=== PATIENT | male | born 1950 | race Caucasian/White ===

== ENCOUNTER 2017-10-31 15:52 | Observation (INO) | payer BC, OTHER ==
--- NOTE | 2017-10-31 16:05 | PDOC ---
History of Present Illness - General Stated Complaint: FEVER Time Seen by Provider: 10/31/17 16:05 - History of Present Illness Initial Comments: 10/31/17 16:11 Mr. Hogue is a 67 yo male w/ pmh of HTN, HLD, and cardiac arrhythmia (s/p pacemaker) who presents for evaluation of 3 day history of nausea with intermittent facial pain. Patient reports he has had a fever at home which he has controlled w/ OTC tylenol. The patient denies chest pain, shortness of breath, headache and dizziness. Denies chills, nausea, diarrhea and constipation. Denies dysuria, frequency, urgency and hematuria. Allergies: Penicillins Past History - Past Medical History Allergies/Adverse Reactions: Allergies Allergy/AdvReac Type Severity Reaction Status Date / Time Penicillins Allergy Verified 10/31/17 16:07 Home Medications: Ambulatory Orders Allopurinol [Zyloprim -] 0 mg PO DAILY 10/31/17 Amlodipine Besylate 5 mg PO DAILY 10/31/17 Aspirin 81 mg PO DAILY 10/31/17 Hydralazine HCl 50 mg PO DAILY 10/31/17 Metoprolol Succinate 25 mg PO DAILY 10/31/17 Simvastatin 0 mg PO DAILY 10/31/17 Thyroid,Pork [[place] Thyroid] 0 mg PO DAILY 10/31/17 Cardiac Disorders: Yes (heart arrythmia) COPD: No HTN: Yes - Suicide/Smoking/Psychosocial Hx Smoking History: Never smoked Have you smoked in the past 12 months: No Hx Alcohol Use: No Drug/Substance Use Hx: No Review of Systems - Review of Systems Comments:: 10/31/17 16:44 GENERAL/CONSTITUTIONAL: +Fever as described. No chills. No weakness. HEAD, EYES, EARS, NOSE AND THROAT: +Intermittent facial pain over the past 3 days. No change in vision. No ear pain or discharge. No sore throat. CARDIOVASCULAR: No chest pain or shortness of breath RESPIRATORY: No cough, wheezing, or hemoptysis. GASTROINTESTINAL: +Nausea without vomiting, diarrhea or constipation. GENITOURINARY: No dysuria, frequency, or change in urination. MUSCULOSKELETAL: No joint or muscle swelling or pain. No neck or back pain. SKIN: No rash NEUROLOGIC: No headache, vertigo, loss of consciousness, or change in strength/ sensation. ENDOCRINE: No increased thirst. No abnormal weight change HEMATOLOGIC/LYMPHATIC: No anemia, easy bleeding, or history of blood clots. ALLERGIC/IMMUNOLOGIC: No hives or skin allergy. *Physical Exam - Physical Exam Comments: 10/31/17 16:45 GENERAL: Awake, alert, and fully oriented, in no acute distress HEAD: No signs of trauma, normocephalic, atraumatic EYES: PERRLA, EOMI, sclera anicteric, conjunctiva clear ENT: Auricles normal inspection, hearing grossly normal, nares patent, oropharynx clear without exudates. Moist mucosa NECK: Normal ROM, supple, no lymphadenopathy, JVD, or masses LUNGS: No distress, speaks full sentences, clear to auscultation bilaterally HEART: Regular rate and rhythm, normal S1 and S2, no murmurs, rubs or gallops, peripheral pulses normal and equal bilaterally. ABDOMEN: Soft, nontender, normoactive bowel sounds. No guarding, no rebound. No masses EXTREMITIES: Normal inspection, Normal range of motion, no edema. No clubbing or cyanosis. NEUROLOGICAL: Cranial nerves II through XII grossly intact. Normal speech, normal gait, no focal sensorimotor deficits SKIN: Warm, Dry, normal turgor, no rashes or lesions noted. ED Treatment Course - LABORATORY CBC & Chemistry Diagram: 10/31/17 16:15 10/31/17 16:15 Medical Decision Making - Medical Decision Making 10/31/17 21:03 Mr. Hogue is a 67 yo male w/ pmh as described who presents for evaluation of fever and facial pain / headache as described. Sepsis workup started. CXR negative. Blood cultures pending. Patient unable to provide urine sample at this time. Head CT ordered for evaluation of headache negative. Troponin elevated as below on 2 draws. EKG significant for atrial sensed ventricular paced rhythm w/ prolonged AV conduction w/ pvc's. Unable to explain fever or troponin at this time. Risks and benefits of LP discussed with patient who ultimately decided to refuse LP. Will admit for further workup / trending of troponins. Paging inpatient team. Laboratory Results - last 24 hr 10/31/17 10/31/17 10/31/17 16:15 16:15 16:15 WBC 11.6 H RBC 5.09 Hgb 14.7 Hct 44.0 MCV 86.5 MCH 28.9 MCHC 33.4 RDW 13.4 Plt Count 253 MPV 7.8 Absolute Neuts (auto) 8.2 H Neutrophils % 71.0 Lymphocytes % 14.6 D Monocytes % 13.0 H Eosinophils % 0.4 D Basophils % 1.0 Nucleated RBC % 0 PT with INR 13.10 H INR 1.16 H PTT (Actin FS) 26.8 VBG pH 7.46 H POC VBG pCO2 34.6 L POC VBG pO2 45.3 Mixed VBG HCO3 24.2 Sodium Potassium Chloride Carbon Dioxide Anion Gap BUN Creatinine Creat Clearance w eGFR Random Glucose Lactic Acid Calcium Total Bilirubin AST ALT Alkaline Phosphatase Troponin I Total Protein Albumin 10/31/17 10/31/17 10/31/17 16:15 16:15 16:15 WBC RBC Hgb Hct MCV MCH MCHC RDW Plt Count MPV Absolute Neuts (auto) Neutrophils % Lymphocytes % Monocytes % Eosinophils % Basophils % Nucleated RBC % PT with INR INR PTT (Actin FS) VBG pH POC VBG pCO2 POC VBG pO2 Mixed VBG HCO3 Sodium 139 Potassium 4.3 Chloride 104 Carbon Dioxide 23 Anion Gap 12 BUN 25 H Creatinine 1.9 H Creat Clearance w eGFR 35.54 Random Glucose 117 H Lactic Acid 1.4 Calcium 9.2 Total Bilirubin 1.0 AST 19 ALT 23 Alkaline Phosphatase 57 Troponin I 0.16 H* Total Protein 7.9 Albumin 3.9 10/31/17 10/31/17 19:35 19:38 WBC RBC Hgb Hct MCV MCH MCHC RDW Plt Count MPV Absolute Neuts (auto) Neutrophils % Lymphocytes % Monocytes % Eosinophils % Basophils % Nucleated RBC % PT with INR INR PTT (Actin FS) VBG pH POC VBG pCO2 POC VBG pO2 Mixed VBG HCO3 Sodium Potassium Chloride Carbon Dioxide Anion Gap BUN Creatinine Creat Clearance w eGFR Random Glucose Lactic Acid 1.1 Calcium Total Bilirubin AST ALT Alkaline Phosphatase Troponin I 0.15 H* Total Protein Albumin *DC/Admit/Observation/Transfer Diagnosis at time of Disposition: Elevated troponin Fever Qualifiers: Fever type: unspecified Qualified Code(s): R50.9 - Fever, unspecified - Discharge Dispostion Decision to Admit order: Yes - Referrals Referrals: Analilia Clement MD [Primary Care Provider] - - Patient Instructions - Post Discharge Activity
[2017-10-31 16:09] VITALS: BMI 31.5
[2017-10-31] MEDS ORDERED: ACETAMINOPHEN 1000 MG/100 ML VIAL (NON FORMULARY) IVPB ONE (16:36)
[2017-10-31] MEDS ORDERED: SODIUM CHLORIDE 1,000 ML IV STA ×2 (16:37→21:03)
[2017-10-31 16:41] LABS: EOS % 0.4 % (0-4.5); HEMOGLOBIN 14.7 GM/dL (11.7-16.9); LYMPH % 14.6 % (8-40); MCH 28.9 pg (25.7-33.7); MCHC 33.4 g/dl (32.0-35.9); MEAN CELL VOLUME 86.5 fl (80-96); MEAN PLT VOLUME 7.8 fl (7.5-11.1); PLATELET COUNT 253 K/MM3 (134-434); RBC 5.09 M/mm3 (4.00-5.60); RDW 13.4 % (11.9-15.9); WHITE BLOOD COUNT 11.6 K/mm3 (4.0-10.0)
[2017-10-31] MEDS ORDERED: ACETAMINOPHEN INJECTION 100 ML IVPB ONE (16:43)
[2017-10-31 16:48] LABS: VENOUS PC02 34.6 mmHg (38-52); VENOUS PH 7.46 (7.32-7.42)
[2017-10-31 16:49] LABS: VENOUS PO2 45.3 mmHg (28-48)
[2017-10-31 17:08] LABS: ALBUMIN 3.9 g/dl (3.4-5.0); ANION GAP 12 MMOL/L (8-16); BLOOD UREA NITROGEN 25 mg/dL (7-18); CALCIUM 9.2 mg/dL (8.5-10.1); CHLORIDE 104 mmol/L (98-107); CO2 23 mmol/L (21-32); CREATININE 1.9 mg/dL (0.55-1.3); GLUCOSE,RANDOM 117 mg/dL (74-106); INR 1.16 (0.83-1.09); POTASSIUM 4.3 mmol/L (3.5-5.1); PROTHROMBIN TIME (PATIENT) 13.1 SEC (9.7-13.0); SGOT/AST 19 U/L (15-37); SGPT/ALT 23 U/L (13-61); SODIUM 139 mmol/L (136-145); TOT PROT 7.9 g/dl (6.4-8.2)
[2017-10-31 17:09] LABS: ALK PHOS 57 U/L (45-117)
[2017-10-31 17:10] LABS: ACTIVATED PTT 26.8 SECONDS (25.2-36.5)
[2017-10-31] MEDS ORDERED: METOCLOPRAMIDE HCL INJECTION 10 MG/2 ML VIAL IVPUSH ONE (17:11)
[2017-10-31] MEDS ORDERED: METOCLOPRAMIDE HCL INJECTION 10 MG/2 ML VIAL ONE (17:23)
[2017-10-31] MEDS ORDERED: ASPIRIN 81 MG CHEWABLE TABLETS PO ONE (17:32)
[2017-10-31] MEDS ORDERED: ASPIRIN 81 MG CHEWABLE TABLETS ONE (17:54)
--- NOTE | 2017-10-31 18:18 | PDOC ---
Attending Attestation - Resident Resident Name: Harvey Anderson - ED Attending Attestation I have performed the following: I have examined & evaluated the patient, The case was reviewed & discussed with the resident, I agree w/resident's findings & plan, Exceptions are as noted - HPI HPI: 10/31/17 18:12 67 year old male with a significant past medical history of HTN, HLD, Cardiac arrhythmia s/p PPM, who presents to the ED with MILLIGAN, nausea, and fever x 3 days. Pt states that his symptoms began with fever. Did not take temp at home but felt warm. Pt states that he subsequently developed a frontal headache. This has been waxing and waning in severity. Denies thunderclap. Denies worst headache of life. Denies neck stiffness. Pt also endorses nausea without vomiting. Denies diarrhea. He denies cough. Denies abdominal pain. Denies dysuria. Denies nasal congestion. He reports taking tylenol for fever while at home with slight relief. Denies chest pain, Sob. Denies contact with sick individuals, out of state travelling. Denies any other symptoms. Allergies: Penicillin. Social history: Former smoker. No alcohol. No illicit drugs. Surgical history: None PMD: Dr. Analilia Clement. " - Physicial Exam PE: 10/31/17 18:15 "GENERAL: Awake, alert, and fully oriented, in no acute distress. HEAD: No signs of trauma EYES: PERRLA, EOMI, sclera anicteric, conjunctiva clear ENT: Auricles normal inspection, hearing grossly normal, nares patent, oropharynx clear without exudates. Moist mucosa NECK: Nontender, no stepoffs, Normal ROM, supple, no lymphadenopathy, JVD, or masses LUNGS: Breath sounds equal, clear to auscultation bilaterally. No wheezes, and no crackles HEART: Regular rate and rhythm, normal S1 and S2, no murmurs, rubs or gallops ABDOMEN: Soft, nontender, normoactive bowel sounds. No guarding, no rebound. No masses EXTREMITIES: Normal range of motion, no edema. No clubbing or cyanosis. No cords, erythema, or tenderness NEUROLOGICAL: Cranial nerves II through XII intact. 5/5 strength and sensation in all extremities, Normal speech, normal gait, normal cerebellar function SKIN: Warm, Dry, normal turgor, no rashes or lesions noted." - Medical Decision Making 10/31/17 18:15 67 M with fever, headache, nausea. Vitals notable for temp 103. Pt with no focal signs of infection on exam. Pt with headache but no signs of meningitis. Full ROM of neck. Pt is awake and alert with normal mental status. Will consider meningitis w/u if no other source identified. - Labs, cultures - UA, CXR - Flu swab - IVF, tylenol, reglan 10/31/17 20:18 Labs notable for trop 0.16. Pt without chest pain/SOB. Suspect demand ischemia 2/2 infection. Also consider endocarditis. Echo ordered Pt with clear CXR, UA pending. I discussed with pt possibility of meningitis given his headache and fever. Risks and benefits of LP discussed. However, pt states his headache has resolved. Denies any symptoms at this time. I advised that LP should be done if we do not find any other source of his fever. However, pt refusing.
--- NOTE | 2017-10-31 22:30 | HP ---
CHIEF COMPLAINT: Generalized Malaise, Fever, Headache PCP: Dr. Joo Mari HISTORY OF PRESENT ILLNESS: This is a 67 y/o man with significant medical history of HTN, HLD, CAD s/p PPM ( Jooix). Who presents to the ED with fever, nausea, generalized malaise, decreased appetite. Patient reports having stress at home with his , and was not eating and drinking a lot. He reports having headaches which he attributes to his poor po intake. Patient denies fall or trauma. Patient denies blurred vision, dizziness, neck stiffness, photophobia, SOB, CP, AP, vomiting, diarrhea, constipation, dysuria. ER course was notable for: (1) WBC-11.6 (2) T Max- 103.0 (3) Troponin I- 0.16, 0.15 (4) BUN- 25 (5) Cr- 1.9 Recent Travel: None PAST MEDICAL HISTORY: See HPI PAST SURGICAL HISTORY: [facility] Social History: Smoking: Former Alcohol: Beer, Occasional Drugs: None Lives with spouse Family History: Brother: NC, age 59 Daughter: Non-Hodgkin's Lymphoma, age 17 Allergies Penicillins Allergy (Verified 10/31/17 16:07) HOME MEDICATIONS: Home Medications Medication Instructions Recorded Allopurinol [Zyloprim -] 0 mg PO DAILY 10/31/17 Amlodipine Besylate 5 mg PO DAILY 10/31/17 Aspirin 81 mg PO DAILY 10/31/17 Hydralazine HCl 50 mg PO DAILY 10/31/17 Metoprolol Succinate 25 mg PO DAILY 10/31/17 Simvastatin 0 mg PO DAILY 10/31/17 Thyroid,Pork [[place] Thyroid] 0 mg PO DAILY 10/31/17 REVIEW OF SYSTEMS CONSTITUTIONAL: generalized weakness, malaise, loss of appetite Absent: fever, chills, diaphoresis, weight change HEENT: Absent: rhinorrhea, nasal congestion, throat pain, throat swelling, difficulty swallowing, mouth swelling, ear pain, eye pain, visual changes CARDIOVASCULAR: Absent: chest pain, syncope, palpitations, irregular heart rate, lightheadedness , peripheral edema RESPIRATORY: Absent: cough, shortness of breath, dyspnea with exertion, orthopnea, wheezing, stridor, hemoptysis GASTROINTESTINAL: Absent: abdominal pain, abdominal distension, nausea, vomiting, diarrhea, constipation, melena, hematochezia GENITOURINARY: Absent: dysuria, frequency, urgency, hesitancy, hematuria, flank pain, genital pain MUSCULOSKELETAL: Absent: myalgia, arthralgia, joint swelling, back pain, neck pain SKIN: Absent: rash, itching, pallor HEMATOLOGIC/IMMUNOLOGIC: Absent: easy bleeding, easy bruising, lymphadenopathy, frequent infections ENDOCRINE: Absent: unexplained weight gain, unexplained weight loss, heat intolerance, cold intolerance NEUROLOGIC: Absent: headache, focal weakness or paresthesias, dizziness, unsteady gait, seizure, mental status changes, bladder or bowel incontinence PSYCHIATRIC: Absent: anxiety, depression, suicidal or homicidal ideation, hallucinations. PHYSICAL EXAMINATION Vital Signs - 24 hr 10/31/17 10/31/17 10/31/17 16:07 19:18 21:48 Temperature 103 F H 98.7 F 99.2 F Pulse Rate 91 H 72 Respiratory 20 18 Rate Blood Pressure 105/67 123/72 O2 Sat by Pulse 94 L Oximetry (%) GENERAL: Awake, alert, and fully oriented, in no acute distress. HEAD: Normal with no signs of trauma. EYES: Pupils equal, round and reactive to light, extraocular movements intact, sclera anicteric, conjunctiva clear. No lid lag. EARS, NOSE, THROAT: Ears normal, nares patent, oropharynx clear without exudates. Dry mucous membranes. NECK: Normal range of motion, supple without lymphadenopathy, JVD, or masses. LUNGS: Breath sounds equal, clear to auscultation bilaterally. No wheezes, and no crackles. No accessory muscle use. HEART: Regular rate and rhythm, normal S1 and S2 without murmur, rub or gallop. ABDOMEN: Soft, nontender, not distended, normoactive bowel sounds, no guarding, no rebound, no masses. No hepatomegaly or splenomegaly. MUSCULOSKELETAL: Normal range of motion at all joints. No bony deformities or tenderness. No CVA tenderness. UPPER EXTREMITIES: 2+ pulses, warm, well-perfused. No cyanosis. No clubbing. No peripheral edema. LOWER EXTREMITIES: 2+ pulses, warm, well-perfused. No calf tenderness. No peripheral edema. NEUROLOGICAL: Cranial nerves II-XII intact. Normal speech. Gait not observed. PSYCHIATRIC: Cooperative. Good eye contact. Appropriate mood and affect. SKIN: Warm, dry, normal turgor, no rashes or lesions noted, normal capillary refill. Laboratory Results - last 24 hr 10/31/17 10/31/17 10/31/17 16:15 16:15 16:15 WBC 11.6 H RBC 5.09 Hgb 14.7 Hct 44.0 MCV 86.5 MCH 28.9 MCHC 33.4 RDW 13.4 Plt Count 253 MPV 7.8 Absolute Neuts (auto) 8.2 H Neutrophils % 71.0 Lymphocytes % 14.6 D Monocytes % 13.0 H Eosinophils % 0.4 D Basophils % 1.0 Nucleated RBC % 0 PT with INR 13.10 H INR 1.16 H PTT (Actin FS) 26.8 VBG pH 7.46 H POC VBG pCO2 34.6 L POC VBG pO2 45.3 Mixed VBG HCO3 24.2 Sodium Potassium Chloride Carbon Dioxide Anion Gap BUN Creatinine Creat Clearance w eGFR Random Glucose Lactic Acid Calcium Total Bilirubin AST ALT Alkaline Phosphatase Troponin I Total Protein Albumin 10/31/17 10/31/17 10/31/17 16:15 16:15 16:15 WBC RBC Hgb Hct MCV MCH MCHC RDW Plt Count MPV Absolute Neuts (auto) Neutrophils % Lymphocytes % Monocytes % Eosinophils % Basophils % Nucleated RBC % PT with INR INR PTT (Actin FS) VBG pH POC VBG pCO2 POC VBG pO2 Mixed VBG HCO3 Sodium 139 Potassium 4.3 Chloride 104 Carbon Dioxide 23 Anion Gap 12 BUN 25 H Creatinine 1.9 H Creat Clearance w eGFR 35.54 Random Glucose 117 H Lactic Acid 1.4 Calcium 9.2 Total Bilirubin 1.0 AST 19 ALT 23 Alkaline Phosphatase 57 Troponin I 0.16 H* Total Protein 7.9 Albumin 3.9 10/31/17 10/31/17 19:35 19:38 WBC RBC Hgb Hct MCV MCH MCHC RDW Plt Count MPV Absolute Neuts (auto) Neutrophils % Lymphocytes % Monocytes % Eosinophils % Basophils % Nucleated RBC % PT with INR INR PTT (Actin FS) VBG pH POC VBG pCO2 POC VBG pO2 Mixed VBG HCO3 Sodium Potassium Chloride Carbon Dioxide Anion Gap BUN Creatinine Creat Clearance w eGFR Random Glucose Lactic Acid 1.1 Calcium Total Bilirubin AST ALT Alkaline Phosphatase Troponin I 0.15 H* Total Protein Albumin ASSESSMENT/PLAN: This is a 67 y/o man with a PMHx of HTN, HLD, CAD s/p PPM. Placed in Tele Observation for Elevated Troponin r/o ACS, Fever of Unknown Source for further evaluation of their emergent condition. Plan: FEN - NS@60ml/hr - Replete lytes prn - Low Na Diet DVT ppx - OOB - SCDs - Consider AC if LOS > 48 hrs Code Status: Full Code Dispo: Tele Observation Problem List - Problem (1) Fever Assessment/Plan: - unknown source - Blood Cultures-pending - Urinalysis and Urine Culture-pending - Rapid Influenza Swab- neg - Chest Xray image reviewed no obvious infiltrate or effusion noted, awaiting official read - Tylenol given in ED will continue - Will continue IVF - Appreciate ID consult - Repeat CBC, BMP in am Code(s): R50.9 - FEVER, UNSPECIFIED Qualifiers: Fever type: unspecified Qualified Code(s): R50.9 - Fever, unspecified (2) Headache Assessment/Plan: - Likely secondary to Dehydration vs Stress vs Meningitis - Head CT- neg ICH - Post Fluid Bolus, patient reports improvement - Tylenol prn - On exam- no nuchal rigidity, no photophobia, no head pain - Neuro checks - Monitor vitals Code(s): R51 - HEADACHE (3) Elevated troponin Assessment/Plan: - Likely secondary to demand ischemia - Serial Enzymes - Cardiac monitoring - Appreciate Cardiology consult - EKG -Atrial Paced with PVCs Code(s): R74.8 - ABNORMAL LEVELS OF OTHER SERUM ENZYMES (4) HTN (hypertension) Assessment/Plan: - stable - Continue home meds with parameters - Monitor renal function Code(s): I10 - ESSENTIAL (PRIMARY) HYPERTENSION (5) HLD (hyperlipidemia) Assessment/Plan: - stable - Continue Lipitor - Monitor LFTs Code(s): E78.5 - HYPERLIPIDEMIA, UNSPECIFIED (6) CAD (coronary artery disease) Assessment/Plan: - s/p PPM (Jooix, interrogated last week, per pt) - On exam- pt denies CP, palpitations or SOB at present - EKG reviewed - Continue home meds Code(s): I25.10 - ATHSCL HEART DISEASE OF [place] CORONARY ARTERY W/O ANG PCTRS (7) Pacemaker Assessment/Plan: - See Above Code(s): Z95.0 - PRESENCE OF CARDIAC PACEMAKER Visit type - Emergency Visit Emergency Visit: Yes ED Registration Date: 10/31/17 Care time: The patient presented to the Emergency Department on the above date and was hospitalized for further evaluation of their emergent condition. - New Patient This patient is new to me today: Yes Date on this admission: 10/31/17 - Critical Care Critical Care patient: No Hospitalist Screening - Colonoscopy Questionnaire Colonoscopy Questionnaire: Colonoscopy Questionnaire - Patient: 50 - 75 years old and never had a screening colonoscopy: No History of colon or rectal polyps, or CA: No History of IBD, Crohn's disease or UC: No History of abdominal radiation therapy as a child: No - Relative: 1 with colon or rectal CA, or polyps at age 60 or younger: No Colon or rectal CA diagnosed at age 45 or younger: No Multiple relatives with colon or rectal CA: No - Outcome: Screening Result: Negative Screen
[2017-11-01 01:43] LABS: URINE APPEARANCE CLEAR; URINE BILIRUBIN NEGATIVE (<2.0 mg/dL); URINE COLOR YELLOW; URINE GLUCOSE (UA) NEGATIVE (NEGATIVE); URINE KETONE TRACE (NEGATIVE); URINE LEUK ESTERASE TRACE (NEGATIVE); URINE NITRITE NEGATIVE (NEGATIVE); URINE PROTEIN NEGATIVE (NEGATIVE); URINE UROBILINOGEN NEGATIVE mg/dL (0.2-1.0)
[2017-11-01 01:48] LABS: EPI CELLS RARE /HPF (FEW); URINE HYALINE CAST 4 /lpf; URINE MUCUS RARE
[2017-11-01] MEDS: ACETAMINOPHEN 325 MG TABLET (FP) PO PRN ×2 (05:46→17:43)
[2017-11-01] MEDS ORDERED: THYROID 30 MG TABLET PO SCH (07:00)
[2017-11-01 07:41] LABS: BASO % 0.5 % (0-2.0); EOS % 0.8 % (0-4.5); HEMOGLOBIN 12.8 GM/dL (11.7-16.9); LYMPH % 25.1 % (8-40); MCH 29.1 pg (25.7-33.7); MCHC 33.7 g/dl (32.0-35.9); MEAN CELL VOLUME 86.2 fl (80-96); MONO % 15.1 % (3.8-10.2); NEUT % 58.5 % (42.8-82.8); PLATELET COUNT 208 K/MM3 (134-434); RBC 4.41 M/mm3 (4.00-5.60); RDW 13.4 % (11.9-15.9); WHITE BLOOD COUNT 10.1 K/mm3 (4.0-10.0)
[2017-11-01] MEDS: THYROID 30 MG TABLET PO SCH (08:16)
[2017-11-01 08:32] LABS: CHLORIDE 108 mmol/L (98-107); POTASSIUM 4.1 mmol/L (3.5-5.1); SODIUM 141 mmol/L (136-145)
[2017-11-01 08:38] LABS: ANION GAP 10 MMOL/L (8-16); BLOOD UREA NITROGEN 22 mg/dL (7-18); CALCIUM 8.1 mg/dL (8.5-10.1); CO2 23 mmol/L (21-32); CREATININE 1.6 mg/dL (0.55-1.3); GLUCOSE,RANDOM 86 mg/dL (74-106); MAGNESIUM 2.1 mg/dL (1.8-2.4); PHOSPHOROUS 3.3 mg/dL (2.5-4.9)
[2017-11-01] MEDS: ASPIRIN 81 MG CHEWABLE TABLETS PO SCH (09:08)
[2017-11-01] MEDS: HEPARIN NA (PORCINE) 5,000 UNITS/ML 1ML VIAL SQ SCH ×2 (09:08→21:22)
[2017-11-01] MEDS: hydrALAZINE HCL 50 MG TABLET (FP) PO SCH (09:08)
[2017-11-01] MEDS: amLODIPine BESYLATE 5 MG TABLET (FP) PO SCH (09:09)
[2017-11-01] MEDS: ALLOPURINOL 100 MG TABLET (FP) PO SCH (09:09)
[2017-11-01] MEDS: metoPROLOL SUCCINATE 25 MG TAB.SR.24H (FP) PO SCH (09:09)
--- NOTE | 2017-11-01 09:58 | CON.CARD ---
Consult Consult Specialty:: cardio - History of Present Illness Chief Complaint: nausea, fever History of Present Illness: 67 male who presented for 3 day history of nausea, malaise. Patient reported fever at home which he has controlled w/ OTC tylenol. fever 103 in ER. troponin 0.1--no change x 3. wbc mildly elevated, lactate normal. CARLOS noted on labs as well. PMH: HTN, HLD, pacemaker - Alcohol/Substance Use Hx Alcohol Use: No - Smoking History Smoking history: Never smoked Have you smoked in the past 12 months: No If you are a former smoker, when did you quit?: many years ago Home Medications - Allergies Allergies/Adverse Reactions: Allergies Allergy/AdvReac Type Severity Reaction Status Date / Time Penicillins Allergy Verified 10/31/17 16:07 - Home Medications Home Medications: Ambulatory Orders Allopurinol [Zyloprim -] 0 mg PO DAILY 10/31/17 Amlodipine Besylate 5 mg PO DAILY 10/31/17 Aspirin 81 mg PO DAILY 10/31/17 Hydralazine HCl 50 mg PO DAILY 10/31/17 Metoprolol Succinate 25 mg PO DAILY 10/31/17 Simvastatin 0 mg PO DAILY 10/31/17 Thyroid,Pork [[place] Thyroid] 0 mg PO DAILY 10/31/17 Vital Signs: Vital Signs Temperature 98.5 F 11/01/17 09:06 Pulse Rate 76 11/01/17 09:06 Respiratory Rate 18 11/01/17 09:06 Blood Pressure 120/60 11/01/17 09:06 O2 Sat by Pulse Oximetry (%) 96 11/01/17 05:48 - Other Data Labs, Other Data: CBC, BMP 11/01/17 05:30 11/01/17 05:30 INR, PTT INR 1.16 (0.83-1.09) H 10/31/17 16:15 Troponin, BNP 10/31/17 10/31/17 11/01/17 16:15 19:35 01:42 Troponin I 0.16 H* 0.15 H* 0.14 H* Troponin, BNP 10/31/17 10/31/17 11/01/17 16:15 19:35 01:42 Troponin I 0.16 H* 0.15 H* 0.14 H* Laboratory Tests 10/31/17 10/31/17 10/31/17 16:15 16:15 16:15 WBC Hgb Plt Count Sodium Potassium Carbon Dioxide BUN 25 H Creatinine Lactic Acid 1.4 AST 19 ALT 23 Troponin I 0.16 H* 10/31/17 11/01/17 11/01/17 19:35 01:42 05:30 WBC 10.1 H Hgb 12.8 Plt Count 208 Sodium Potassium Carbon Dioxide BUN Creatinine Lactic Acid AST ALT Troponin I 0.15 H* 0.14 H* 11/01/17 05:30 WBC Hgb Plt Count Sodium 141 Potassium 4.1 Carbon Dioxide 23 BUN 22 H Creatinine 1.6 H Lactic Acid AST ALT Troponin I Assessment/Plan ECG: NSR with APCs; v-paced CXR: clear lungs/pleura fever: -w/u per pmd -c/o MILLIGAN and CT evidence of sinusitis elevated troponin: -troponin in low (non-diagnostic) range, flat trend x 3--not c/w ACS. i.e. nonspecific finding in setting of non-cardiac sx's s/p PPM CARLOS: -creatinine 1.5 here 12/2016 -was 1.9 on admit, down to 1.6 today with fluids -likely related to vol depletion with poor po intake reported, with insensible losses from fever HTN: -bp controlled -same meds HPL: -cont home statin
--- NOTE | 2017-11-01 12:44 | PN ---
Progress Note (short form) - Note Progress Note: pt has PM. therefore, i was curious as to what deputy brand inspector monitors his PM and he stated he sees dr ricardo. consult placed to dr ricardo instead. thanks
--- NOTE | 2017-11-01 14:05 | CON.ID ---
Consult - History of Present Illness History of Present Illness: 67 y.o. male with PMH of CAD s/p PPM (placed last December and checked 4 days ago), HTN, HLD presents with c/o fever (103F at home), frontal headache during febrile episodes, nausea without vomiting/diarrhea, generalized weakness and loss of appetite for 4 days. Pt states he was feeling well prior to onset of symptoms. He denies neck stiffness, sensitivity to light or audio/visual disturbances. States he does not have a history of migraine/cluster headaches. Pt also denies shortness of breath/cough/chest pain/increased nasal discharge/ sore throat/ dysuria/ rash. Denies any pain or discomfort around PPM site. He has not been eating in the past 4 days (only jello) due to loss of appetite. Pt denies history of travel other than to [place] for a weekend 3 wks ago. He is and lives with his and 23 y.o. daughter, both who have been healthy. He denies multiple sexual partners or history of STDs, or illicit drug use/excessive alcohol intake. In the ER noted to have fever (103F), mild leukocytosis, with elevated BUN/Creatinine. Currently he is alert, without acute distress. Fever of 102F this a.m. but denies current headache or nausea. States he is feeling "a bit better". 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 Place of : [place] History of Recent Travel: Yes ([place] 3 w[place] ago) Home Medications - Allergies Allergies/Adverse Reactions: Allergies Allergy/AdvReac Type Severity Reaction Status Date / Time Penicillins Allergy Verified 11/01/17 14:10 - Home Medications Home Medications: Ambulatory Orders Allopurinol [Zyloprim -] 0 mg PO DAILY 10/31/17 Amlodipine Besylate 5 mg PO DAILY 10/31/17 Aspirin 81 mg PO DAILY 10/31/17 Hydralazine HCl 50 mg PO DAILY 10/31/17 Metoprolol Succinate 25 mg PO DAILY 10/31/17 Simvastatin 0 mg PO DAILY 10/31/17 Thyroid,Pork [[place] Thyroid] 0 mg PO DAILY 10/31/17 Review of Systems - Review of Systems Constitutional: reports: Chills, Fever. denies: No Symptoms, Diaphoresis, Lethargy, Loss of Appetite, Malaise, Night Sweats, Unintentional Wgt. Loss, Weakness, Other Eyes: reports: No Symptoms. denies: Blind Spots, Blurred Vision, Double Vision , Eye Pain, Floaters, Photophobia, Recent Change in Vision, Other HENT: reports: No Symptoms. denies: Difficult Swallowing, Ear Discharge, Ear Pain, Epistaxis, Gingival Bleeding, Hearing Loss, Mouth Swelling, Nasal Congestion, Ocular Prosthesis, Throat Pain, Toothache, Ringing in Ears, Other Neck: reports: No Symptoms. denies: Decreased ROM, Lumps, Pain on Movement, Stiffness, Swollen Glands, Tenderness, Other Cardiovascular: reports: No Symptoms. denies: Chest Pain, Edema, Palpitations, Shortness of Breath, Other Respiratory: reports: No Symptoms. denies: Cough, Exercise Intolerance, Hemoptysis, Orthopnea, PND, Snoring, SOB, SOB on Exertion, Wheezing, Other Gastrointestinal: reports: No Symptoms, Nausea. denies: Abdominal Pain, Bloating, Constipation, Diarrhea, Dysphagia, Indigestion, Melena, Rectal Bleeding, Vomiting, Vomiting Blood, Other Genitourinary: reports: No Symptoms. denies: Burning, Discharge, Dysuria, Flank Pain, Frequency, Hematuria, Incontinence, Lesions, Menses, Pain, Testicular Mass, Testicular Pain, Testicular Swelling, Urgency, Vaginal Bleeding , Other Breasts: reports: No Symptoms Reported Musculoskeletal: reports: No Symptoms. denies: Back Pain, Crepitus, Decreased ROM, Extremity Pain, Joint Pain, Joint Swelling, Muscle Pain, Muscle Cramps, Muscle Weakness, Other Integumentary: reports: No Symptoms. denies: Blister, Bruising, Change in Color , Eczema, Erythema, Incision, Lesions, Lump, Pallor, Pruritis, Rash, Wound, Other Neurological: reports: Headache. denies: No Symptoms, Change in LOC, Change in Speech, Confusion, Dizziness, Incoordination, Numbness, Parasthesia, Pre- Existing Deficit, Seizure, Syncope, Tremors, Unsteady Gait, Weakness, Other Endocrine: reports: No Symptoms. denies: Excessive Sweating, Flushing, Increased Hunger, Increased Thirst, Intolerance to Cold, Intolerance to Heat, Unexplained Weight Gain, Unexplained Weight Loss, Other Hematology/Lymphatic: reports: No Symptoms. denies: Easily Bruised, Excessive Bleeding, Swollen Glands, Other Psychiatric: reports: No Symptoms. denies: Altered Sleep Pattern, Anxiety, Depression, Hallucinations, Panic, Paranoia, Suicidal, Other Physical Exam Vital Signs: Vital Signs Temperature 98.5 F 11/01/17 09:06 Pulse Rate 76 11/01/17 09:06 Respiratory Rate 18 11/01/17 09:06 Blood Pressure 120/60 11/01/17 09:06 O2 Sat by Pulse Oximetry (%) 96 11/01/17 05:48 Constitutional: Yes: No Distress, Calm Eyes: Yes: Conjunctiva Clear HENT: Yes: Atraumatic, Normocephalic Neck: Yes: Supple, Trachea Midline Cardiovascular: Yes: Regular Rate and Rhythm Respiratory: Yes: CTA Bilaterally Gastrointestinal: Yes: Normal Bowel Sounds, Soft Renal/: Yes: WNL Musculoskeletal: Yes: WNL Extremities: Yes: WNL Edema: No Integumentary: Yes: WNL Wound/Incision: Yes: Clean/Dry (PPM site healed, no erythema/tenderness, no drainage, no tenderness at site) Neurological: Yes: Alert, Oriented Psychiatric: Yes: Alert, Oriented Labs: CBC, BMP 11/01/17 05:30 11/01/17 05:30 Laboratory Tests 10/31/17 10/31/17 10/31/17 16:15 16:15 16:15 WBC 11.6 H RBC 5.09 Hgb 14.7 Hct 44.0 MCV 86.5 MCH 28.9 MCHC 33.4 RDW 13.4 Plt Count 253 MPV 7.8 Absolute Neuts (auto) 8.2 H Neutrophils % 71.0 Lymphocytes % 14.6 D Monocytes % 13.0 H Eosinophils % 0.4 D Basophils % 1.0 Nucleated RBC % 0 PT with INR 13.10 H INR 1.16 H PTT (Actin FS) 26.8 VBG pH 7.46 H POC VBG pCO2 34.6 L POC VBG pO2 45.3 Mixed VBG HCO3 24.2 Sodium Potassium Chloride Carbon Dioxide Anion Gap BUN Creatinine Creat Clearance w eGFR Random Glucose Lactic Acid Calcium Phosphorus Magnesium Total Bilirubin AST ALT Alkaline Phosphatase Troponin I Total Protein Albumin Urine Color Urine Appearance Urine pH Ur Specific [place] Urine Protein Urine Glucose (UA) Urine Ketones Urine Blood Urine Nitrite Urine Bilirubin Urine Urobilinogen Ur Leukocyte Esterase Urine WBC (Auto) Urine RBC (Auto) Ur Epithelial Cells Hyaline Casts Urine Mucus 10/31/17 10/31/17 10/31/17 16:15 16:15 16:15 WBC RBC Hgb Hct MCV MCH MCHC RDW Plt Count MPV Absolute Neuts (auto) Neutrophils % Lymphocytes % Monocytes % Eosinophils % Basophils % Nucleated RBC % PT with INR INR PTT (Actin FS) VBG pH POC VBG pCO2 POC VBG pO2 Mixed VBG HCO3 Sodium 139 Potassium 4.3 Chloride 104 Carbon Dioxide 23 Anion Gap 12 BUN 25 H Creatinine 1.9 H Creat Clearance w eGFR 35.54 Random Glucose 117 H Lactic Acid 1.4 Calcium 9.2 Phosphorus Magnesium Total Bilirubin 1.0 AST 19 ALT 23 Alkaline Phosphatase 57 Troponin I 0.16 H* Total Protein 7.9 Albumin 3.9 Urine Color Urine Appearance Urine pH Ur Specific [place] Urine Protein Urine Glucose (UA) Urine Ketones Urine Blood Urine Nitrite Urine Bilirubin Urine Urobilinogen Ur Leukocyte Esterase Urine WBC (Auto) Urine RBC (Auto) Ur Epithelial Cells Hyaline Casts Urine Mucus 10/31/17 10/31/17 11/01/17 19:35 19:38 01:12 WBC RBC Hgb Hct MCV MCH MCHC RDW Plt Count MPV Absolute Neuts (auto) Neutrophils % Lymphocytes % Monocytes % Eosinophils % Basophils % Nucleated RBC % PT with INR INR PTT (Actin FS) VBG pH POC VBG pCO2 POC VBG pO2 Mixed VBG HCO3 Sodium Potassium Chloride Carbon Dioxide Anion Gap BUN Creatinine Creat Clearance w eGFR Random Glucose Lactic Acid 1.1 Calcium Phosphorus Magnesium Total Bilirubin AST ALT Alkaline Phosphatase Troponin I 0.15 H* Total Protein Albumin Urine Color Yellow Urine Appearance Clear Urine pH 5.0 Ur Specific [place] 1.020 Urine Protein Negative Urine Glucose (UA) Negative Urine Ketones Trace H Urine Blood Negative Urine Nitrite Negative Urine Bilirubin Negative Urine Urobilinogen Negative Ur Leukocyte Esterase Trace Urine WBC (Auto) 5 Urine RBC (Auto) None Ur Epithelial Cells Rare Hyaline Casts 4 Urine Mucus Rare 11/01/17 11/01/17 11/01/17 01:42 05:30 05:30 WBC 10.1 H RBC 4.41 Hgb 12.8 Hct 38.0 MCV 86.2 MCH 29.1 MCHC 33.7 RDW 13.4 Plt Count 208 MPV 8.0 Absolute Neuts (auto) 5.9 Neutrophils % 58.5 Lymphocytes % 25.1 D Monocytes % 15.1 H Eosinophils % 0.8 D Basophils % 0.5 Nucleated RBC % 0 PT with INR INR PTT (Actin FS) VBG pH POC VBG pCO2 POC VBG pO2 Mixed VBG HCO3 Sodium 141 Potassium 4.1 Chloride 108 H Carbon Dioxide 23 Anion Gap 10 BUN 22 H Creatinine 1.6 H Creat Clearance w eGFR 43.33 Random Glucose 86 Lactic Acid Calcium 8.1 L Phosphorus 3.3 Magnesium 2.1 Total Bilirubin AST ALT Alkaline Phosphatase Troponin I 0.14 H* Total Protein Albumin Urine Color Urine Appearance Urine pH Ur Specific [place] Urine Protein Urine Glucose (UA) Urine Ketones Urine Blood Urine Nitrite Urine Bilirubin Urine Urobilinogen Ur Leukocyte Esterase Urine WBC (Auto) Urine RBC (Auto) Ur Epithelial Cells Hyaline Casts Urine Mucus Blood cultures - pending Urinc Cultures - pending Influenza A/B nasal swab negative Imaging - Results Chest X-ray: Report Reviewed Cat Scan: Report Reviewed Problem List - Problems (1) CAD (coronary artery disease) Code(s): I25.10 - ATHSCL HEART DISEASE OF [place] CORONARY ARTERY W/O ANG PCTRS (2) Elevated troponin Code(s): R74.8 - ABNORMAL LEVELS OF OTHER SERUM ENZYMES (3) Fever Code(s): R50.9 - FEVER, UNSPECIFIED Qualifiers: Fever type: unspecified Qualified Code(s): R50.9 - Fever, unspecified (4) HLD (hyperlipidemia) Code(s): E78.5 - HYPERLIPIDEMIA, UNSPECIFIED (5) HTN (hypertension) Code(s): I10 - ESSENTIAL (PRIMARY) HYPERTENSION (6) Headache Code(s): R51 - HEADACHE (7) Pacemaker Code(s): Z95.0 - PRESENCE OF CARDIAC PACEMAKER Assessment/Plan 67 y.o. male with PMH of CAD s/p PPM, HTN, HLD presenting with fever up to 103F/ chills , occasional frontal headaches, loss of appetite and p.o. intake for the past 4 days. Pt denies neck stiffness, photophobia, rash, change in mental status, shortness of breath/cough, CP, abdominal pain/diarrhea, or dysuria. Noted to have mild leukocytosis, +fever, normal lactic acid level, but mild elevation in troponins, in ER. Febrile syndrome r/o Possible Viral etiology Leukocytosis - improving CARLOS (baseline renal function unknown) - improving Questionable sinusitis -- labs/imaging results reviewed -- f/u Blood cultures -- suggest 2D echo -- will order EBV/CMV serology, HIV testing -- Cardiology evaluation -- If pt remains persistently febrile with headaches, recommend LP. Pt is refusing LP at this time stating he "feels better". Pt appears clinically stable at this time, nontoxic appearance continue close monitoring will follow Thank you
--- NOTE | 2017-11-01 15:27 | PN ---
Progress Note (short form) - Note Progress Note: Pt seen / examined . chart reviewed. comfortable denies cp. feels little better i/d consult noted / appreciated Vital Signs Temp 99.3 F 11/01/17 14:03 Pulse 75 11/01/17 14:03 Resp 20 11/01/17 14:03 BP 133/70 11/01/17 14:03 Pulse Ox 96 11/01/17 05:48 Intake & Output 10/31/17 11/01/17 11/01/17 23:59 11:59 23:59 Intake Total 240 Output Total 600 Balance -360 Weight 220 lb Intake: Oral 240 Output: Urine 600 Void 600 Other: Voiding Method Urinal Toilet Height 5 ft 10 in Body Mass Index (BMI) 31.5 Weight Measurement Method Standing Scale Active Medications Acetaminophen (Tylenol -) 650 mg PO Q6H PRN PRN Reason: FEVER Last Admin: 11/01/17 05:46 Dose: 650 mg Allopurinol (Zyloprim -) 100 mg PO DAILY [facility] Last Admin: 11/01/17 09:09 Dose: 100 mg Amlodipine Besylate (Norvasc -) 5 mg PO DAILY [facility] Last Admin: 11/01/17 09:09 Dose: 5 mg Aspirin (Asa -) 81 mg PO DAILY [facility] Last Admin: 11/01/17 09:08 Dose: 81 mg Atorvastatin Calcium (Lipitor -) 10 mg PO [facility] Heparin Sodium (Porcine) (Heparin -) 5,000 unit SQ BID [facility] Last Admin: 11/01/17 09:08 Dose: 5,000 unit Hydralazine HCl (Apresoline -) 50 mg PO DAILY [facility] Last Admin: 11/01/17 09:08 Dose: 50 mg Metoprolol Succinate (Toprol Xl -) 25 mg PO DAILY [facility] Last Admin: 11/01/17 09:09 Dose: 25 mg Thyroid ([place] Thyroid -) 30 mg PO DAILY@0700 [facility] Last Admin: 11/01/17 08:16 Dose: 30 mg CBC, BMP 11/01/17 05:30 11/01/17 05:30 Microbiology 10/31/17 16:30 Influenza Types A,B Antigen - Final Nasopharyngeal Swab - Final Physical Examination Constitutional: Yes: No Distress, Comfortable Eyes: Yes: Conjunctiva Clear, PERRLA Neck: Yes: WNL, Supple/ no jvd Cardiovascular: Yes: Regular Rate and Rhythm Respiratory: Yes: CTA Bilaterally Gastrointestinal: Yes: Normal Bowel Sounds, Soft Edema: No Neurological: Yes: WNL, Cran Nerves II-XII Intact Psychiatric: Yes: Alert Assessment/Plan Fever. Likely viral observe off abx +ve troponins- Likely stress related Monitor on tele cardiology to follow will follow Problem List - Problems (1) Elevated troponin Code(s): R74.8 - ABNORMAL LEVELS OF OTHER SERUM ENZYMES (2) Fever Code(s): R50.9 - FEVER, UNSPECIFIED Qualifiers: Fever type: unspecified Qualified Code(s): R50.9 - Fever, unspecified (3) HLD (hyperlipidemia) Code(s): E78.5 - HYPERLIPIDEMIA, UNSPECIFIED (4) HTN (hypertension) Code(s): I10 - ESSENTIAL (PRIMARY) HYPERTENSION (5) Headache Code(s): R51 - HEADACHE (6) Pacemaker Code(s): Z95.0 - PRESENCE OF CARDIAC PACEMAKER
[2017-11-01] MEDS: ATORVASTATIN CA 10 MG TABLET (FP) PO SCH (21:22)
--- NOTE | 2017-11-01 21:29 | EKG ---
Test Reason : Blood Pressure : / mmHG Vent. Rate : 092 BPM Atrial Rate : 092 BPM P-R Int : 224 ms QRS Dur : 160 ms QT Int : 424 ms P-R-T Axes : 060 -50 063 degrees QTc Int : 524 ms Atrial-sensed ventricular-paced rhythm with prolonged AV conduction WITH FREQUENT PREMATURE VENTRICULAR COMPLEXES AND FUSION COMPLEXES ABNORMAL ECG WHEN COMPARED WITH ECG OF 09-JAN-2017 07:14, FUSION COMPLEXES ARE NOW PRESENT PREMATURE VENTRICULAR COMPLEXES ARE NOW PRESENT VENT. RATE HAS INCREASED BY 18 BPM Confirmed by RIKKI WILLS MD ([id number]) on 11/01/2017 9:28:46 PM Referred By: Confirmed By:RIKKI WILLS MD
[2017-11-02] MEDS: THYROID 30 MG TABLET PO SCH (06:19)
[2017-11-02 06:35] LABS: BASO % 0.8 % (0-2.0); EOS % 1.2 % (0-4.5); HEMATOCRIT 37.1 % (35.4-49); HEMOGLOBIN 12.6 GM/dL (11.7-16.9); LYMPH % 25.5 % (8-40); MCH 29.1 pg (25.7-33.7); MEAN CELL VOLUME 85.5 fl (80-96); MEAN PLT VOLUME 8.5 fl (7.5-11.1); MONO % 12.1 % (3.8-10.2); NEUT % 60.4 % (42.8-82.8); PLATELET COUNT 204 K/MM3 (134-434); RBC 4.34 M/mm3 (4.00-5.60); RDW 12.9 % (11.9-15.9); WHITE BLOOD COUNT 9.5 K/mm3 (4.0-10.0)
[2017-11-02 06:53] LABS: ALBUMIN 3.3 g/dl (3.4-5.0); ANION GAP 13 MMOL/L (8-16); BLOOD UREA NITROGEN 16 mg/dL (7-18); CALCIUM 8.2 mg/dL (8.5-10.1); CHLORIDE 102 mmol/L (98-107); CHOLESTEROL 121 mg/dL (50-200); CO2 23 mmol/L (21-32); GLUCOSE,RANDOM 84 mg/dL (74-106); SGOT/AST 17 U/L (15-37); SODIUM 138 mmol/L (136-145); TRIGLYCERIDES 109 mg/dL (0-150)
[2017-11-02 07:04] LABS: ALK PHOS 50 U/L (45-117); BILIRUBIN,TOTAL 1.2 mg/dL (0.2-1.0); CREATININE 1.3 mg/dL (0.55-1.3); HDL CHOLESTEROL 31 mg/dL (40-60); SGPT/ALT 17 U/L (13-61); TOT PROT 6.7 g/dl (6.4-8.2)
--- NOTE | 2017-11-02 09:21 | CON.CARD ---
Cardiology Consult (text) - Consultation Consultation Note: Cardiology Consult Dictated IMP: Fever, suspected viral syndrome PPM 2017 for [facility] REC: Fever work up as per ID, thus far blood cx negative. Echo Recent PPM interrogation was unremarkable. If blood cultures remain negative today, ok to d/c tele in AM.
[2017-11-02] MEDS: hydrALAZINE HCL 50 MG TABLET (FP) PO SCH (09:33)
[2017-11-02] MEDS: ASPIRIN 81 MG CHEWABLE TABLETS PO SCH (09:34)
[2017-11-02] MEDS: ALLOPURINOL 100 MG TABLET (FP) PO SCH (09:34)
[2017-11-02] MEDS: amLODIPine BESYLATE 5 MG TABLET (FP) PO SCH (09:34)
[2017-11-02] MEDS: HEPARIN NA (PORCINE) 5,000 UNITS/ML 1ML VIAL SQ SCH ×2 (09:34→21:21)
[2017-11-02] MEDS: metoPROLOL SUCCINATE 25 MG TAB.SR.24H (FP) PO SCH (09:34)
--- NOTE | 2017-11-02 12:04 | CONS ---
DATE OF CONSULTATION: 11/02/2017 CARDIOLOGY CONSULTATION REQUESTED BY: Analilia Clement MD REASON FOR CONSULTATION: History of pacemaker, fever, and mildly elevated troponin. HISTORY OF PRESENT ILLNESS: Patient is a 67-year-old male with a past medical history of hypertension, hyperlipidemia, mild chronic renal insufficiency, hypothyroidism, diabetes, and a dual chamber [employer] pacemaker placed in December 2016 for complete heart block at [facility]. He presented for admission on admission October 31 to the emergency room complaining of fever and headache. He described 3 days of nausea, intermittent facial pain. He was found to be febrile initially to 103. He had a head CT scan performed on October 31 showing no evidence of acute intracranial pathology, left maxillary sinusitis. He was then seen by Infectious Disease and cultured. He was started on no antibiotics. Over the course of the last 48 hours, his fever curve has decreased, currently 99.7. His blood cultures have remained negative. Influenza swab was negative. This morning he is seen and examined in no acute distress, he describes his headaches as improved. No chest pain, cough, abdominal pain, or dysuria. He denies shortness of breath. CURRENT MEDICATIONS: Include acetaminophen 650 p.o. q.6 p.r.n., allopurinol 100 mg daily, amlodipine 5 mg p.o. daily, aspirin 81 mg p.o. daily, atorvastatin 10 mg p.o. nightly, subcu heparin 5000 units b.i.d. for DVT prophylaxis, hydralazine 50 mg p.o. daily, metoprolol succinate 25 mg p.o. daily, and [place] Thyroid 30 mg p.o. daily. FAMILY HISTORY: Noncontributory. SOCIAL HISTORY: Denies smoking. PHYSICAL EXAMINATION: General: Alert, oriented, no distress. Vital Signs: T-max 99.7, blood pressure ranging between 125-140 systolic/60-70. His oxygen saturation is 96% on room air. Head and Neck: He is anicteric. No carotid bruits. Heart: Regular with no murmurs. Chest: Clear. Abdomen: Soft, nontender. Skin: No rashes. Extremities: No edema. LABORATORIES: White count was initially 11.6 now down to 9.5, hematocrit 37.1, platelets 204. There was a monocyte predominance of 13%, no neutrophil shift, INR 1.16. Sodium 138, potassium 4, creatinine 1.3 down from 1.6 initially. Magnesium 2.1. Troponins have been 0.16, 0.15, and 0.14-flat, no significant rise. His urinalysis was remarkable only for trace ketones. Serology including CMV, EBV, and HIV are pending. His EKG on presentation showed atrial sensed V pacing at 92 beats per minute. His chest x-ray on admission was unremarkable. IMPRESSION: 1. Fever, suspected viral syndrome. Questionable sinusitis on CT scan. 2. History of pacemaker in 2017 for complete heart block. RECOMMENDATION: 1. Fever workup as per ID. Defer use of antibiotics to ID and PMD. Blood cultures thus far are negative. 2. An echocardiogram will be obtained today for evaluation of LV function and wall motion, rule out pericardial disease. 3. A recent pacemaker interrogation was unremarkable. If his blood culture remain negative today, would be acceptable to discontinue telemetry in a.m. The low level/borderline troponin elevation does not reflect an acute coronary syndrome as there is no significant rise and he is asymptomatic. Rather, it most probably reflects systemic inflammation due to infection/SIRS with a possibility of demand ischemia in that setting. Would recommend outpatient stress testing once he recovers from this febrile illness. Will follow. GILBERT SEAY M.D. [id number]
--- NOTE | 2017-11-02 12:22 | PN ---
Progress Note, Physician History of Present Illness: stable had one episode of fever otherwise no issues daughter in the room discussed with daughter - Current Medication List Current Medications: Active Medications Acetaminophen (Tylenol -) 650 mg PO Q6H PRN PRN Reason: FEVER Last Admin: 11/01/17 17:43 Dose: 650 mg Allopurinol (Zyloprim -) 100 mg PO DAILY [facility] Last Admin: 11/02/17 09:34 Dose: 100 mg Amlodipine Besylate (Norvasc -) 5 mg PO DAILY [facility] Last Admin: 11/02/17 09:34 Dose: 5 mg Aspirin (Asa -) 81 mg PO DAILY [facility] Last Admin: 11/02/17 09:34 Dose: 81 mg Atorvastatin Calcium (Lipitor -) 10 mg PO HS [facility] Last Admin: 11/01/17 21:22 Dose: 10 mg Heparin Sodium (Porcine) (Heparin -) 5,000 unit SQ BID [facility] Last Admin: 11/02/17 09:34 Dose: 5,000 unit Hydralazine HCl (Apresoline -) 50 mg PO DAILY [facility] Last Admin: 11/02/17 09:33 Dose: 50 mg Metoprolol Succinate (Toprol Xl -) 25 mg PO DAILY [facility] Last Admin: 11/02/17 09:34 Dose: 25 mg Thyroid ([place] Thyroid -) 30 mg PO DAILY@0700 [facility] Last Admin: 11/02/17 06:19 Dose: 30 mg - Objective Vital Signs: Vital Signs Temperature 98.7 F 11/02/17 09:00 Pulse Rate 79 11/02/17 09:00 Respiratory Rate 18 11/02/17 09:00 Blood Pressure 118/80 11/02/17 09:00 O2 Sat by Pulse Oximetry (%) 96 11/02/17 05:24 Constitutional: Yes: No Distress, Calm Cardiovascular: Yes: Regular Rate and Rhythm Respiratory: Yes: Regular, CTA Bilaterally Gastrointestinal: Yes: Normal Bowel Sounds, Soft Musculoskeletal: Yes: WNL Extremities: Yes: WNL Neurological: Yes: Alert, Oriented Psychiatric: Yes: Alert, Oriented Labs: CBC, BMP 11/02/17 05:30 11/02/17 05:30 INR, PTT INR 1.16 (0.83-1.09) H 10/31/17 16:15 Assessment/Plan Problem List - Problems (1) CAD (coronary artery disease) Code(s): I25.10 - ATHSCL HEART DISEASE OF [place] CORONARY ARTERY W/O ANG PCTRS (2) Elevated troponin Code(s): R74.8 - ABNORMAL LEVELS OF OTHER SERUM ENZYMES (3) Fever Code(s): R50.9 - FEVER, UNSPECIFIED Qualifiers: Fever type: unspecified Qualified Code(s): R50.9 - Fever, unspecified (4) HLD (hyperlipidemia) Code(s): E78.5 - HYPERLIPIDEMIA, UNSPECIFIED (5) HTN (hypertension) Code(s): I10 - ESSENTIAL (PRIMARY) HYPERTENSION (6) Headache Code(s): R51 - HEADACHE (7) Pacemaker Code(s): Z95.0 - PRESENCE OF CARDIAC PACEMAKER Assessment/Plan 67 y.o. male with PMH of CAD s/p PPM, HTN, HLD presenting with fever up to 103F/ chills , occasional frontal headaches, loss of appetite and p.o. intake for the past 4 days. Pt denies neck stiffness, photophobia, rash, change in mental status, shortness of breath/cough, CP, abdominal pain/diarrhea, or dysuria. Noted to have mild leukocytosis, +fever, normal lactic acid level, but mild elevation in troponins, in ER. Febrile syndrome r/o Possible Viral etiology Leukocytosis - improving CARLOS (baseline renal function unknown) - improving plan will continue to watch without abx will send blood work for parasite once we have all results rest as per the team
--- NOTE | 2017-11-02 12:46 | ECHO ---
Name: PRIYANKA FAIR Exam:Adult Echocardiogram Study Date: 11/02/2017 10:10 AM Age: 67 yrs Reason For Study: R/O ENDOCARDITIS Height: 70 in Weight: 220 lb BSA: 2.2 m2 MMode/2D Measurements & Calculations IVSd: 0.94 cm Ao root diam: 3.3 cm LVIDd: 5.9 cm LA dimension: 3.7 cm LVIDs: 4.2 cm LVPWd: 0.85 cm EDV(Teich): 174.8 ml TAPSE: 2.4 cm ESV(Teich): 77.0 ml RV S Samuel: 12.7 cm/sec Doppler Measurements & Calculations MV E max samuel: 66.1 cm/sec MR max samuel: 445.8 cm/sec MV A max samuel: 87.9 cm/sec MR max P.5 mmHg MV E/A: 0.75 TR max samuel: 203.7 cm/sec PI end-d samuel: 102.5 cm/sec TR max P.6 mmHg Med Peak E' Samuel: 3.9 cm/sec Med E/e': 17.0 Lat Peak E' Samuel: 6.5 cm/sec Lat E/e': 10.1 Procedure A complete two-dimensional transthoracic echocardiogram was performed (2D, M-mode, Doppler and color flow Doppler). Left Ventricle The left ventricle is borderline dilated. Left ventricular systolic function is moderately reduced. E jection Fraction = 40-45%. E/A reversal with TDI revealing E/E' 16 suggestive of impaired relaxation with petar vated filling pressure. There is moderate global hypokinesis of the left ventricle. Right Ventricle The right ventricle is normal size. The right ventricular systolic function is normal. RV systolic TD I is 13 cm/s. Atria The left atrial size is normal. Right atrial size is normal. Mitral Valve There is mild mitral annular calcification. There is mild mitral regurgitation. Tricuspid Valve The tricuspid valve is normal in structure and function. There is mild tricuspid regurgitation. Right ventricular systolic pressure is normal. Aortic Valve The aortic valve is normal in structure and function. No aortic regurgitation is present. Pulmonic Valve The pulmonic valve is not well visualized. Mild pulmonic valvular regurgitation. Great Vessels The aortic root is normal size. Pericardium/Pleura There is no pericardial effusion. Interpretation Summary The left ventricle is borderline dilated. Left ventricular systolic function is moderately reduced. There is moderate global hypokinesis of the left ventricle. Ejection Fraction = 40-45%. E/A reversal with TDI revealing E/E' 16 suggestive of impaired relaxation with elevated filling press ure The right ventricular systolic function is normal. The left atrial size is normal. Right atrial size is normal. There is mild mitral annular calcification. There is mild mitral regurgitation. There is mild tricuspid regurgitation. Right ventricular systolic pressure is normal. Mild pulmonic valvular regurgitation. There is no pericardial effusion. Previous study is not available for comparison Bryan Medrano MD 11/02/2017 12:45 PM
--- NOTE | 2017-11-02 13:27 | PN ---
Progress Note (short form) - Note Progress Note: pt feels better all f/u noted low grade temp all cultures -ve so far denies cp. Vital Signs Temp 98.7 F 11/02/17 09:00 Pulse 79 11/02/17 09:00 Resp 18 11/02/17 09:00 BP 118/80 11/02/17 09:00 Pulse Ox 96 11/02/17 05:24 Intake & Output 11/01/17 11/02/17 11/02/17 23:59 11:59 23:59 Intake Total 360 320 Balance 360 320 Intake: Oral 360 320 Other: Voiding Method Toilet # Unmeasured Voids Void 1 Bowel Movement No Active Medications Acetaminophen (Tylenol -) 650 mg PO Q6H PRN PRN Reason: FEVER Last Admin: 11/01/17 17:43 Dose: 650 mg Allopurinol (Zyloprim -) 100 mg PO DAILY [facility] Last Admin: 11/02/17 09:34 Dose: 100 mg Amlodipine Besylate (Norvasc -) 5 mg PO DAILY [facility] Last Admin: 11/02/17 09:34 Dose: 5 mg Aspirin (Asa -) 81 mg PO DAILY [facility] Last Admin: 11/02/17 09:34 Dose: 81 mg Atorvastatin Calcium (Lipitor -) 10 mg PO HS [facility] Last Admin: 11/01/17 21:22 Dose: 10 mg Heparin Sodium (Porcine) (Heparin -) 5,000 unit SQ BID [facility] Last Admin: 11/02/17 09:34 Dose: 5,000 unit Hydralazine HCl (Apresoline -) 50 mg PO DAILY [facility] Last Admin: 11/02/17 09:33 Dose: 50 mg Metoprolol Succinate (Toprol Xl -) 25 mg PO DAILY [facility] Last Admin: 11/02/17 09:34 Dose: 25 mg Thyroid ([place] Thyroid -) 30 mg PO DAILY@0700 [facility] Last Admin: 11/02/17 06:19 Dose: 30 mg CBC, BMP 11/02/17 05:30 11/02/17 05:30 Microbiology 11/01/17 01:12 Urine Culture - Final Urine - Urine Clean Catch NO GROWTH OBTAINED 10/31/17 16:15 Blood Culture - Preliminary Blood - Peripheral Venous NO GROWTH OBTAINED AFTER 24 HOURS, INCUBATION TO CONTINUE FOR 4 DAYS. 10/31/17 16:15 Blood Culture - Preliminary Blood - Peripheral Venous NO GROWTH OBTAINED AFTER 24 HOURS, INCUBATION TO CONTINUE FOR 4 DAYS. Echo -- Lv Dysfunction Physical Examination Constitutional: Yes: No Distress, Comfortable. Eyes: Yes: Conjunctiva Clear, PERRLA Neck: Yes: WNL, Supple/ no jvd Cardiovascular: Yes: Regular Rate and Rhythm Respiratory: Yes: CTA Bilaterally Gastrointestinal: Yes: Normal Bowel Sounds, Soft Edema: No Neurological: Yes: WNL, Cran Nerves II-XII Intact Psychiatric: Yes: Alert Assessment/Plan Fever. Likely viral observe off abx +ve troponins- Likely stress related f/u cultures observe today echo noted if cultures -ve and better-- d/c in am d/c tele will follow may shower Problem List - Problems (1) Elevated troponin Code(s): R74.8 - ABNORMAL LEVELS OF OTHER SERUM ENZYMES (2) Fever Code(s): R50.9 - FEVER, UNSPECIFIED Qualifiers: Fever type: unspecified Qualified Code(s): R50.9 - Fever, unspecified (3) HLD (hyperlipidemia) Code(s): E78.5 - HYPERLIPIDEMIA, UNSPECIFIED (4) HTN (hypertension) Code(s): I10 - ESSENTIAL (PRIMARY) HYPERTENSION (5) Headache Code(s): R51 - HEADACHE (6) Pacemaker Code(s): Z95.0 - PRESENCE OF CARDIAC PACEMAKER
[2017-11-02] MEDS: ATORVASTATIN CA 10 MG TABLET (FP) PO SCH (21:21)
[2017-11-03 04:35] VITALS: PULSE 65
[2017-11-03 06:06] LABS: CMV IgM < 30.0 AU/mL (0.0-29.9)
[2017-11-03] MEDS: THYROID 30 MG TABLET PO SCH (06:12)
[2017-11-03] MEDS: ACETAMINOPHEN 325 MG TABLET (FP) PO PRN (08:29)
[2017-11-03 08:34] VITALS: BP 126/71; TEMP 98.7
--- NOTE | 2017-11-03 09:14 | PN ---
Progress Note, Physician Chief Complaint: Feeling better Blood cultures remain NGTD Echo: moderately reduced LVEF, no obvious vegetations. History of Present Illness: Now afebrile - Current Medication List Current Medications: Active Medications Acetaminophen (Tylenol -) 650 mg PO Q6H PRN PRN Reason: FEVER Last Admin: 11/03/17 08:29 Dose: 650 mg Allopurinol (Zyloprim -) 100 mg PO DAILY [facility] Last Admin: 11/02/17 09:34 Dose: 100 mg Amlodipine Besylate (Norvasc -) 5 mg PO DAILY [facility] Last Admin: 11/02/17 09:34 Dose: 5 mg Aspirin (Asa -) 81 mg PO DAILY [facility] Last Admin: 11/02/17 09:34 Dose: 81 mg Atorvastatin Calcium (Lipitor -) 10 mg PO HS [facility] Last Admin: 11/02/17 21:21 Dose: 10 mg Heparin Sodium (Porcine) (Heparin -) 5,000 unit SQ BID [facility] Last Admin: 11/02/17 21:21 Dose: 5,000 unit Hydralazine HCl (Apresoline -) 50 mg PO DAILY [facility] Last Admin: 11/02/17 09:33 Dose: 50 mg Metoprolol Succinate (Toprol Xl -) 25 mg PO DAILY [facility] Last Admin: 11/02/17 09:34 Dose: 25 mg Thyroid ([place] Thyroid -) 30 mg PO DAILY@0700 [facility] Last Admin: 11/03/17 06:12 Dose: 30 mg - Objective Vital Signs: Vital Signs Temperature 98.7 F 11/03/17 08:33 Pulse Rate 65 11/03/17 08:33 Respiratory Rate 20 11/03/17 08:33 Blood Pressure 126/71 11/03/17 08:33 O2 Sat by Pulse Oximetry (%) 96 11/02/17 20:23 Constitutional: Yes: No Distress Eyes: Yes: Conjunctiva Clear Cardiovascular: Yes: Regular Rate and Rhythm Respiratory: Yes: CTA Bilaterally Gastrointestinal: Yes: Soft (nontender) Edema: No Neurological: Yes: Alert, Oriented ...Motor Strength: WNL Labs: CBC, BMP 11/02/17 05:30 11/02/17 05:30 INR, PTT INR 1.16 (0.83-1.09) H 10/31/17 16:15 Microbiology 10/31/17 16:15 Blood - Peripheral Venous Blood Culture - Preliminary NO GROWTH OBTAINED AFTER 48 HOURS, INCUBATION TO CONTINUE FOR 3 DAYS. 10/31/17 16:15 Blood - Peripheral Venous Blood Culture - Preliminary NO GROWTH OBTAINED AFTER 48 HOURS, INCUBATION TO CONTINUE FOR 3 DAYS. Laboratory Tests 11/02/17 11/02/17 11/02/17 05:30 05:30 05:30 WBC 9.5 Hgb 12.6 Plt Count 204 Sodium Potassium CMV IgM Ab < 30.0 HIV 1&2 Antibody Screen Negative HIV P24 Antigen Negative 11/02/17 05:30 WBC Hgb Plt Count Sodium 138 Potassium 4.0 CMV IgM Ab HIV 1&2 Antibody Screen HIV P24 Antigen - ....Imaging EKG: Image Reviewed (TELE: Paced) Assessment/Plan IMP: Fever, suspected viral syndrome PPM 2017 for [facility] REC: 1. Blood cultures NGTD and TTE with no gross vegetation. Likely viral syndrome. 2. Moderately reduced LVEF noted: d/w patient. Asx. Advised outpt stress MPI. Cont. Toprol. Will plan to add low dose DEBORAH or [facility] as outpt. unless prior adverse rx- will review office records.
--- NOTE | 2017-11-03 10:25 | DS ---
Physical Examination Vital Signs: Vital Signs Temperature 98.7 F 11/03/17 08:33 Pulse Rate 65 11/03/17 08:33 Respiratory Rate 20 11/03/17 08:33 Blood Pressure 126/71 11/03/17 08:33 O2 Sat by Pulse Oximetry (%) 96 11/02/17 20:23 Constitutional: Yes: No Distress, Calm Cardiovascular: Yes: Regular Rate and Rhythm, Murmur Respiratory: Yes: CTA Bilaterally Gastrointestinal: Yes: Normal Bowel Sounds, Soft, Abdomen, Obese. No: Tenderness Edema: No Labs: CBC, BMP 11/02/17 05:30 11/02/17 05:30 Discharge Summary Reason For Visit: FEVER,ELEVATED TROPONIN LEVEL Current Active Problems CAD (coronary artery disease) (Acute) Elevated troponin (Acute) Fever (Acute) HLD (hyperlipidemia) (Acute) HTN (hypertension) (Acute) Headache (Acute) Hospital Course: Admitted for fever and elevated Troponins-- seen by ID and cardiology cultures negative WBC normal Likely viral Pt better Will be seeing Cardiology as outpt for stress test Stable for dc home Condition: Improved - Instructions Referrals: Analilia Clement MD [Primary Care Provider] - Disposition: HOME - Home Medications Comprehensive Discharge Medication List: Ambulatory Orders Allopurinol [Zyloprim -] 0 mg PO DAILY 10/31/17 Amlodipine Besylate 5 mg PO DAILY 10/31/17 Aspirin 81 mg PO DAILY 10/31/17 Hydralazine HCl 50 mg PO DAILY 10/31/17 Metoprolol Succinate 25 mg PO DAILY 10/31/17 Simvastatin 0 mg PO DAILY 10/31/17 Thyroid,Pork [[place] Thyroid] 0 mg PO DAILY 10/31/17
[2017-11-03] MEDS: ASPIRIN 81 MG CHEWABLE TABLETS PO SCH (10:29)
[2017-11-03] MEDS: amLODIPine BESYLATE 5 MG TABLET (FP) PO SCH (10:30)
[2017-11-03] MEDS: hydrALAZINE HCL 50 MG TABLET (FP) PO SCH (10:30)
[2017-11-03] MEDS: HEPARIN NA (PORCINE) 5,000 UNITS/ML 1ML VIAL SQ SCH (10:30)
[2017-11-03] MEDS: ALLOPURINOL 100 MG TABLET (FP) PO SCH (10:30)
[2017-11-03] MEDS: metoPROLOL SUCCINATE 25 MG TAB.SR.24H (FP) PO SCH (10:30)
--- NOTE | 2017-11-03 14:42 | PN ---
Progress Note, Physician History of Present Illness: patient stable doing well no fevers - Objective Vital Signs: Vital Signs Temperature 98.7 F 11/03/17 08:33 Pulse Rate 65 11/03/17 08:33 Respiratory Rate 20 11/03/17 08:33 Blood Pressure 126/71 11/03/17 08:33 O2 Sat by Pulse Oximetry (%) 96 11/02/17 20:23 Constitutional: Yes: No Distress, Calm Cardiovascular: Yes: Regular Rate and Rhythm Respiratory: Yes: Regular, CTA Bilaterally Gastrointestinal: Yes: Normal Bowel Sounds, Soft Musculoskeletal: Yes: WNL Extremities: Yes: WNL Neurological: Yes: Alert, Oriented Psychiatric: Yes: Alert, Oriented Labs: CBC, BMP 11/02/17 05:30 11/02/17 05:30 INR, PTT INR 1.16 (0.83-1.09) H 10/31/17 16:15 Assessment/Plan Problem List - Problems (1) CAD (coronary artery disease) Code(s): I25.10 - ATHSCL HEART DISEASE OF [place] CORONARY ARTERY W/O ANG PCTRS (2) Elevated troponin Code(s): R74.8 - ABNORMAL LEVELS OF OTHER SERUM ENZYMES (3) Fever Code(s): R50.9 - FEVER, UNSPECIFIED Qualifiers: Fever type: unspecified Qualified Code(s): R50.9 - Fever, unspecified (4) HLD (hyperlipidemia) Code(s): E78.5 - HYPERLIPIDEMIA, UNSPECIFIED (5) HTN (hypertension) Code(s): I10 - ESSENTIAL (PRIMARY) HYPERTENSION (6) Headache Code(s): R51 - HEADACHE (7) Pacemaker Code(s): Z95.0 - PRESENCE OF CARDIAC PACEMAKER Assessment/Plan 67 y.o. male with PMH of CAD s/p PPM, HTN, HLD presenting with fever up to 103F/ chills , occasional frontal headaches, loss of appetite and p.o. intake for the past 4 days. Pt denies neck stiffness, photophobia, rash, change in mental status, shortness of breath/cough, CP, abdominal pain/diarrhea, or dysuria. Noted to have mild leukocytosis, +fever, normal lactic acid level, but mild elevation in troponins, in ER. Febrile syndrome r/o Possible Viral etiology Leukocytosis - improving CARLOS (baseline renal function unknown) - improving plan will continue to watch without abx await for all reports rest as per he team patient feeling better
[2017-11-05 14:17] LABS: BABESIA MICROTI ANTIBODY IGG <1:10 (Neg:<1:10); BABESIA MICROTI ANTIBODY IGM <1:10 (Neg:<1:10)
== END 2017-11-03 14:22 | disposition home or self-care (01) ==
LOC: JER 15:52 → JERBED 21:07 → J4W 23:03
PROVIDERS: ADMIT Internal Medicine; ATTEND Internal Medicine
PROC: 3E033GC Introduction of Other Therapeutic Substance into Peripheral Vein, Percutaneous Approach (ICD-10-PCS; principal; 2017-10-31)
DX: R50.9 Fever, unspecified (principal); R74.8 Abnormal levels of other serum enzymes; R51 Headache; I25.10 Atherosclerotic heart disease of native coronary artery without angina pectoris; I10 Essential (primary) hypertension; Z95.0 Presence of cardiac pacemaker; E78.00 Pure hypercholesterolemia, unspecified; E78.5 Hyperlipidemia, unspecified; Z88.0 Allergy status to penicillin; Z79.82 Long term (current) use of aspirin; Z86.79 Personal history of other diseases of the circulatory system
CPT/HCPCS: 36415; 70450-TC; 71045-TC-FY; 80048; 80053; 80061; 81003; 81015; 82803; 83605; 83721; 83735; 84100; 84443; 84484; 85025; 85610; 85730; 86644; 86645; 86664; 86753; 87040; 87086; 87207; 87389; 87804; 93005; 93010; 93306-TC; 99284-25; G0378; J0131; J1644; J7030